=== PATIENT | female | born 1925 | race Caucasian/White ===

== ENCOUNTER 2016-05-23 17:13 | Inpatient (IN) | payer MEDICARE, BC ==
--- NOTE | ~2016-05-23 | DS ---
Discharge Summary [facility] [address] [facility] [place]. [address] NAME: CINTHYA CONROY : [birth year] STATUS : DIS IN PAT#: [id number] AGE: 89 ADM/REG DATE : 05/24/16 MR#: [id number] REPORT SERV DATE: 06/07/16 DICTATED BY: BARRERA SINGH DATE: 06/06/16 REPORT STATUS : Draft TRANSCRIBED BY: EVA DATE: 06/06/16 Data Collection from hospitalization DISCHARGE DIAGNOSES: 1. Paroxysmal atrial fibrillation with rapid ventricular response. 2. Chest pain. 3. Pacemaker placement, 05/22/2016. 4. New syncope. 5. Anemia. 6. Hypertension. 7. Sick sinus syndrome. 8. Mild mitral regurgitation. 9. Orthostatic intolerance. 10.History of remote lacunar stroke. 11.Hypothyroidism. 12.Osteoarthritis. 13.Scoliosis. 14.Degenerative disk disease. 15.Gastritis. 16.Hemorrhoids. 17.Hiatal hernia. 18.Melanoma. 19.Anxiety. 20.Hearing loss. CONSULTATIONS: None. PROCEDURES PERFORMED: None. DISCHARGE MEDICATION: Xanax 0.25 mg twice a day as needed, Cordarone 200 mg every eight hours, Synthroid 50 mcg before breakfast, Cozaar 100 mg daily, Calan 40 mg twice a day, Coumadin 4.5 mg with supper, Tylenol 650 mg every four hours as needed, Colace 200 mg twice a day as needed, nitroglycerin 0.4 mg sublingually as needed, CoQ10 100 mg after lunch, acidophilus one tablet daily, tramadol 50 mg one to two tablets every four to six hours as needed. CONDITION AT DISCHARGE: Stable. DISPOSITION: The patient was discharged to [facility] on a low-sodium, low- cholesterol, cardiac diet with activities as instructed. HOSPITAL COURSE: This is an 89-year-old female, who has a history of sick sinus syndrome with bradycardia and symptomatic paroxysmal atrial fibrillation. She also has a history of CVA, hypertension, mild nonobstructive coronary artery disease, chronic dizziness with orthostasis. She does have a preserved ejection fraction according to her recent echocardiogram. She was discharged home on the day prior to this admission after permanent pacemaker had been placed on 05/22/2016 for sick sinus syndrome. Several hours after discharge, she went home and developed precordial chest pain in her mid chest region. She Discharge Summary [facility] [address] [place]. [address] NAME: CINTHYA CONROY : [birth year] STATUS : DIS IN PAT#: [id number] AGE: 89 ADM/REG DATE : 05/24/16 MR#: [id number] REPORT SERV DATE: 06/07/16 DICTATED BY: BARRERA SINGH DATE: 06/06/16 REPORT STATUS : Draft TRANSCRIBED BY: EVA DATE: 06/06/16 also felt weak and tired. She reports that the pain lasted for hours and then several hours later, she presented to the emergency department to have things checked out. She denied shortness of breath or palpitations. In the emergency room, her EKG by my interpretation revealed atrial fibrillation with rapid ventricular response. She continued to have atrial fibrillation with rapid ventricular response all night while being observed in the short- stay unit. She also had an episode that was described as near syncope versus syncope. While she was walking back from the bathroom in the short-stay immediately after arrival to the emergency room and after standing up from the toilet, she felt weak and had to be assisted back from the bathroom by a tech from the emergency room. She was not attached to a monitor at that point. After lying in bed, she did feel better. She has a history of longstanding dizziness and orthostasis. She was found to be anemic. She denied any symptoms of abdominal pain and denied black tarry stools. Her pacemaker site was not especially uncomfortable and she had no symptoms since the evening prior to admission. She said she felt very fatigued and weak and did not think she was able to care for herself in her own home and she has no relatives nearby. She was admitted to the hospital at this time for further evaluation and treatment. Upon admission, verapamil was given. Her home flecainide dose was held that morning and amiodarone drip would be initiated instead. INR level was therapeutic at 2.2. If she remained in atrial fibrillation, we would plan a cardioversion. Chest x-ray revealed no pneumothorax. The following day, she had no further chest pain. She had no dizziness while getting out of bed. She had no palpitations or shortness of breath. INR level was 2.0. She was evaluated by Occupational and Physical Therapy. Orthostatic vital signs were checked. Her Medtronic dual-chamber pacemaker was interrogated. Her current rhythm with in/out atrial fibrillation. On 05/26/2016, she was comfortable. Losartan was decreased. Verapamil was decreased. Orthostatic vital signs continued to be checked. She had no further syncope. She said she felt good during the night. She was up sitting in a chair. Discharge planning was performed. On 05/28/2016, discharge instructions were given. Due to her improved and stable condition, she was discharged to [facility] with the above-stated instructions. Information collected by: Rajwinder Carson I submit the above information as my discharge summary. TG/MODDarrin Barrera Singh M.D. / [id number] CC: Lenard Rodriguez M.D. [facility]
--- NOTE | ~2016-05-23 | HP ---
History And Physical [place] [address] [facility] [place]. [address] NAME: CINTHYA CONROY : [birth year] STATUS : ADM Wilfrido PAT#: [id number] AGE: 89 ADM/REG DATE : 05/23/16 MR#: [id number] REPORT SERV DATE: 05/24/16 DICTATED BY: DWAYNE SIMMONS DATE: 05/24/16 REPORT STATUS : Draft TRANSCRIBED BY: MODL DATE: 05/24/16 DATE OF ADMISSION: 05/23/2016 LAP HAND TOOL: Dr. Aly. PAPER MAKER: Dr. Singh. CHIEF COMPLAINT: Symptomatic atrial fibrillation with RVR with chest pain in a patient who was postop day #1 from permanent pacemaker. HISTORY OF PRESENT ILLNESS: This is a pleasant 89-year-old frail white female with a history of sick sinus syndrome with bradycardia and symptomatic paroxysmal atrial fibrillation. She does also have a history of CVA, hypertension, mild nonobstructive CAD, chronic dizziness with orthostasis. She does have a preserved ejection fraction per recent echo. She was discharged to home yesterday morning after a permanent pacemaker was placed 05/22/2016 in the afternoon by Dr. Singh for sick sinus syndrome. Several hours after discharge she went home and developed precordial chest pain in her mid chest region. She also felt weak and tired. She reports the pain lasted for hours and several hours later, she presented to the emergency department to have things checked out. She denied any shortness of breath. No palpitation. In the emergency room, EKG was found by my interpretation to reveal atrial fibrillation with RVR. She continues to have had atrial fibrillation with RVR all night while being observed in the short-stay unit. She did also have an episode that was described as a near-syncope versus syncope. While she was walking back from the bathroom in short-stay immediately after arrival from ER. After standing up from the toilet, she felt weak and had to be assisted back from the bathroom by the tech from the ER. She was not attached to the monitor yet at that point. After she was lying in bed, she did feel better. She does have a history of long-standing dizziness and orthostasis. While she was found to be anemic, she denies any symptoms of abdominal pain, and denies black tarry stools. Pacemaker site is not especially uncomfortable and she has no symptoms since yesterday evening. Currently, she is feeling well except for she says that she is very fatigued and weak and does not feel that she is able to care for herself in her own home as she has no relatives nearby and she lives alone. PAST MEDICAL HISTORY: 1. Paroxysmal atrial fibrillation, on chronic anticoagulation with Jantoven. 2. Sick sinus syndrome with significant pauses and syncope. 3. Hypertension. 4. Nonobstructive coronary artery disease per cath, arteriogram 06/22/2010 with 20%-30% circumflex eccentric before bifurcation of terminal atrioventricular branch, posterolateral branch. This was performed after a false-positive stress test. 5. Mild mitral regurgitation per echocardiogram 04/23/2016. 6. Orthostatic intolerance. 7. Remote lacunar stroke, right basal ganglia with diffuse white matter demyelination, periventricular and subcortical with extension to centrum semiovale 04/21/2016. 8. Hypothyroidism. 9. Osteoarthritis. History And Physical [address] [address] NAME: CINTHYA CONROY : [birth year] STATUS : ADM Wilfrido PAT#: [id number] AGE: 89 ADM/REG DATE : 05/23/16 MR#: [id number] REPORT SERV DATE: 05/24/16 DICTATED BY: DWAYNE SIMMONS DATE: 05/24/16 REPORT STATUS : Draft TRANSCRIBED BY: EVA DATE: 05/24/16 10.Mild intimal coronary irregularities without significant stenosis by previous catheterization to 06/22/2010. 11.Walking pneumonia. 12.Arthritis. 13.Scoliosis. 14.Low back pain. 15.Degenerative disk disease. 16.Gastritis. 17.Hemorrhoids. 18.C diff. 19.Hiatal hernia. 20.Melanoma. 21.Anxiety. 22.Difficulty swallowing with narrowed esophagus. 23.Hearing loss. PAST SURGICAL HISTORY: 1. Cataract surgery. 2. Hysterectomy 1973. 3. Melanoma removed from arm in 1966. 4. Hemorrhoidectomy 2002. 5. Appendectomy 1945. SOCIAL HISTORY: . Lives alone. She does have adult children, but they do not live nearby. She denies any tobacco or alcohol usage. FAMILY HISTORY: Son with history of heart disease. REVIEW OF SYSTEMS: As above per HPI, all other systems reviewed and negative. ALLERGIES: 1. CODEINE, REACTION NAUSEA AND VOMITING. 2. CLINDAMYCIN, C DIFF DEVELOPED AFTER ONLY ONE DOSE. HOME MEDICATIONS: List reviewed and is as follows, 1. Xanax 0.25 mg p.o. twice per day as needed for anxiety. 2. Coenzyme Q10 100 mg p.o. after lunch. 3. Flecainide 100 mg p.o. twice per day. 4. Acidophilus one tablet p.o. daily. 5. Synthroid 50 mcg before breakfast. 6. Losartan 100 mg p.o. daily. 7. Verapamil 40 mg p.o. twice per day. 8. Coumadin 4.5 mg p.o. with supper. PHYSICAL EXAMINATION: VITAL SIGNS: Oxygen saturation 95% on room air; temperature 98; pulse 126, most recent 106; History And Physical [address] [address] NAME: CINTHYA CONROY : [birth year] STATUS : ADM Wilfrido PAT#: [id number] AGE: 89 ADM/REG DATE : 05/23/16 MR#: [id number] REPORT SERV DATE: 05/24/16 DICTATED BY: DWAYNE SIMMONS DATE: 05/24/16 REPORT STATUS : Draft TRANSCRIBED BY: EVA DATE: 05/24/16 respiratory rate 18; blood pressure 140/100. GENERAL: Well developed, well nourished. In no apparent distress. HEENT: Head normocephalic. No xanthelasma. Sclera clear, anicteric. Moist mucous membranes without pallor. No lymphadenopathy. No deficits noted. NECK: Trachea midline. Supple. No thyromegaly, JVD, or bruits. RESPIRATORY: Unlabored respirations. Breath sounds clear bilaterally to posterior auscultation. No wheezes, rhonchi or crackles. CARDIOVASCULAR: Irregularly irregular and tachycardic. No murmur, rub, or gallop appreciated. Left side permanent pacemaker with Steri-Strips that are clean, dry, and intact. There is mild bruising noted around pacemaker site. There are no exudates. ABDOMEN: Soft, nontender, and nondistended. Active bowel sounds auscultated x4 quadrants. No organomegaly and no masses. No aortic bruit. EXTREMITIES: DP/PT and radial pulses 2+ bilaterally. No clubbing, cyanosis, or edema. SKIN: Warm, dry, intact. No rash. Normal turgor. MUSCULOSKELETAL: Moves all extremities in bed without difficulty. NEURO/PSYCH: Alert and oriented x3 with no acute distress. Affect appropriate to current situation. LABORATORY DATA: BMP: Sodium 140, potassium low at 3.2, creatinine 0.72, glucose 99, magnesium 2.4. CBC: White blood cell count 7.2, hemoglobin 9.4 yesterday at 1655 (down from 13.4 on 05/22), hematocrit 27.8 at 1655 on 05/23 (down from 39.4 on 05/22), RBC 2.87 which is also down from 05/22. There was normocytic and normochromic anemia pattern. Platelets 176. INR therapeutic at 2.2. Troponin 0.06, 0.05, 0.04. EKGs multiple, personally interpreted, most recent EKG was performed this morning at 0741, atrial fibrillation with RVR with frequent V-paced complexes, heart rate 116, possible septal infarct. No acute ischemia. EKG initially in the emergency room yesterday at 1605 reveals atrial flutter with variable AV block with V-pacing complexes, nonspecific ST changes in the infero and lateral leads. EKG performed this morning at 0032 hours revealed atrial fibrillation with anterolateral possible ischemia. There is intermittent V-pacing. Another EKG performed this morning at 0539 revealed atrial flutter with a 2:1 conduction, septal infarct age undetermined with anterolateral ST changes. Telemetry, atrial fibrillation with RVR with V-pacing intermittently one-teens to 120s. ASSESSMENT/PLAN: 1. Paroxysmal atrial fibrillation/atrial flutter with rapid ventricular response, currently atrial fibrillation with rapid ventricular response. The patient did not receive her cardiac medications last night in the emergency room. Nurse will give verapamil now. Her home flecainide dose will be held this morning and amiodarone drip will be initiated instead. INR is therapeutic at 2.2. If she remains in atrial fibrillation, then we will plan a cardioversion today with Dr. Singh. I reviewed the risks and benefits of cardioversion and patient would wish to proceed if need be. Dr. Singh to see patient later today. 2. Precordial chest pain. This was atypical yesterday several hours after being discharged home post pacemaker. Flat troponins reveal no acute coronary syndrome. History And Physical [address] [place]. [address] NAME: CINTHYA CONROY : [birth year] STATUS : ADM Wilfrido PAT#: [id number] AGE: 89 ADM/REG DATE : 05/23/16 MR#: [id number] REPORT SERV DATE: 05/24/16 DICTATED BY: DWAYNE SIMMONS DATE: 05/24/16 REPORT STATUS : Draft TRANSCRIBED BY: EVA DATE: 05/24/16 Differential diagnosis includes recent pacemaker insertion or symptomatic atrial fibrillation along with acute anemia. Patient denies blood in stool. There were no large bruises over her body. She does have mild bruising at her pacemaker site. She is symptomatic with fatigue. I will follow her anemia with CBC repeat this morning, followed by a repeat hemoglobin and hematocrit in 8 hours and Hemoccult. We will follow and further recommendations are forthcoming. 3. Sick sinus syndrome, status post permanent pacemaker. She is now postop day #2 with intermittent V-pacing frequently. Chest x-ray revealed no pneumothorax. 4. Small pleural effusions. She did have a preserved LVEF of 60% per recent echocardiogram 04/23/2016 with mild mitral regurgitation, mild to moderate tricuspid regurgitation, and aortic valve sclerosis. She denies any dyspnea at this time. We will follow. 5. Mild nonobstructive coronary disease with luminal irregularities per catheterization 2010. We will consider adding a statin and I will defer to her control operator. 6. Near syncope. The patient has a history of orthostatic abnormalities at baseline and she is anemic at this present time. It is likely secondary to orthostasis and/or anemia. I will have the RN check orthostatic vitals at this time and she will provide fluid rehydration if she is orthostatic. Currently, she is feeling well. 7. Debility. The patient reports she is too weak to live at home alone as she has no relatives nearby. She reports she wants to go to rehab in [place]. I will consult PT and OT for evaluation to determine whether she could go home with home health first and if she would require placement and I will have Dr. Singh discuss with the patient further. I recommend Dr. Singh consider taking the patient under his service to continue the evaluation for anemia and debility along with atrial fibrillation with RVR postpacemaker. Further recommendations forthcoming his evaluation. KL/MODL Dwayne Simmons NP / [id number] CC: Yanique Montelongo, MSN, ORTHOPAEDIC SURGEON- Lenard Kunz M.D. David Wendt, M.D.
[2016-05-23 17:05] LABS: BASOPHILS 0.1 %; BASOPHILS ABSOLUTE 0.01 10/3/uL (0.0-0.16); EOSINOPHILS 0.3 %; EOSINOPHILS ABSOLUTE 0.02 10/3/uL (0.0-0.53); IMMATURE GRANULOCYTES 0.1 %; IMMATURE GRANULOCYTES ABSOLUTE 0.01 10/3/uL (0.0-0.11); LYMPHOCYTES 10.9 %; LYMPHOCYTES ABSOLUTE 0.78 10/3/uL (0.67-4.30); MEAN CORPUS HGB CONC 33.8 g/dL (32.0-36.0); MEAN CORPUSCULAR HEMOGLOB 32.8 pg (26.0-34.0); MEAN PLATELET VOLUME 9.4 fL (9.2-13.0); MONOCYTES 10.2 %; MONOCYTES ABSOLUTE 0.73 10/3/uL (0.21-1.20); NEUTROPHILS 78.4 %; NEUTROPHILS ABSOLUTE 5.63 10/3/uL (2.02-8.40); RBC DISTRIBUTION WIDTH 14.6 % (12.0-16.0); WHITE BLOOD CELLS 7.2 10/3/uL (4.5-10.5)
[2016-05-23 17:06] LABS: HEMATOCRIT 27.8 % (36.0-48.0); HEMOGLOBIN 9.4 g/dL (12.0-16.0); MANUAL DIFF NO %; MEAN CORPUSCULAR VOLUME 96.9 fL (80-100); PLATELET COUNT 176 10/3/uL (150-400); RED CELL COUNT 2.87 10/6/uL (4.0-5.6)
[~2016-05-23 17:13] MED LIST: ACIDOPHILU2 PO; ASAB PO; C1 PO; CALAN120 MG PO; CALAN40 MG PO; CALAN80 MG PO; CALTRAT600 PO; CENTRUM TAB1 TAB PO; CO Q-10 OTC PO; CO Q-10100 MG PO; COREG3 PO; COZ25 PO; COZAAR100 MG PO; FISH-EPA1000 MG PO; FLAG500TAB PO; FLECAINIDE50 MG PO; FLORASTOR250 MG PO; JANTOVEN1 MG PO; JANTOVEN4 MG PO; JANTOVEN5 MG PO; KDUR10 PO; LEVOTHYROXIN50 MCG PO; MAX25 PO; METROCREAM0.75 % TOP; NORV25 PO; NORV5 PO; PRILO PO; PRIN2.5 PO; SYN.05 PO; V5 PO; V80 PO; VITAMIN C100 MG PO; X5 PO
[2016-05-23 17:16] LABS: INTERNATIONAL NORMAL RATI 2.2 UNITS (-); PARTIAL THROMBO TIME 34.6 SEC (22.5-37.2)
[2016-05-23 18:33] LABS: CHEST PAIN PROFILE TAT 0 Hrs 37 Mins; TROPONIN I 0.06 NG/ML (<0.05)
[2016-05-23 18:43] LABS: BUN (BLOOD UREA NITROGEN) 16 MG/DL (6-23); CALCIUM, SERUM 8.9 MG/DL (8.5-10.4); CHLORIDE, SERUM 104 MMOL/L (96-112); CREATININE 0.72 MG/DL (0.55-1.02); GFR AFRICAN AMERICAN 86 ML/MIN (>=60); GFR NON AFRICAN AMERICAN 74 ML/MIN (>=60); GLUCOSE, SERUM 99 MG/DL (60-99); POTASSIUM, SERUM 3.2 MMOL/L (3.5-5.3); SODIUM, SERUM 140 MMOL/L (135-148)
[2016-05-23 18:45] LABS: CO2 (CARBON DIOXIDE) 24 MMOL/L (24-34)
[2016-05-23] MEDS ORDERED: FLECAINIDE100 MG PO (20:03)
[2016-05-23] MEDS ORDERED: SYN.05 PO (20:03)
[2016-05-23] MEDS ORDERED: COZAAR100 MG PO (20:04)
[2016-05-23] MEDS ORDERED: CALAN40 MG PO (20:04)
[2016-05-23] MEDS ORDERED: ACIDOPHILU2 PO (20:05)
[2016-05-23] MEDS ORDERED: CO Q-10100 MG PO (20:05)
[2016-05-23] MEDS ORDERED: COUMADIN4 MG PO (20:06)
[2016-05-23] MEDS ORDERED: X25 PO (20:08)
[2016-05-24 11:53] LABS: BASOPHILS 0.1 %; BASOPHILS ABSOLUTE 0.01 10/3/uL (0.0-0.16); EOSINOPHILS 0.4 %; EOSINOPHILS ABSOLUTE 0.03 10/3/uL (0.0-0.53); HEMATOCRIT 37.7 % (36.0-48.0); HEMOGLOBIN 12.9 g/dL (12.0-16.0); IMMATURE GRANULOCYTES 0.3 %; IMMATURE GRANULOCYTES ABSOLUTE 0.02 10/3/uL (0.0-0.11); LYMPHOCYTES 11.3 %; MANUAL DIFF NO %; MEAN CORPUS HGB CONC 34.2 g/dL (32.0-36.0); MEAN CORPUSCULAR VOLUME 93.5 fL (80-100); MEAN PLATELET VOLUME 9.6 fL (9.2-13.0); MONOCYTES 10.6 %; MONOCYTES ABSOLUTE 0.84 10/3/uL (0.21-1.20); NEUTROPHILS 77.3 %; NEUTROPHILS ABSOLUTE 6.13 10/3/uL (2.02-8.40); PLATELET COUNT 237 10/3/uL (150-400); RED CELL COUNT 4.03 10/6/uL (4.0-5.6); WHITE BLOOD CELLS 7.9 10/3/uL (4.5-10.5)
[2016-05-24 12:14] LABS: BUN (BLOOD UREA NITROGEN) 14 MG/DL (6-23); CALCIUM, SERUM 8.4 MG/DL (8.5-10.4); CHLORIDE, SERUM 105 MMOL/L (96-112); CO2 (CARBON DIOXIDE) 28 MMOL/L (24-34); CREATININE 0.73 MG/DL (0.55-1.02); FREE T4 1.36 NG/DL (0.76-1.46); GFR AFRICAN AMERICAN 85 ML/MIN (>=60); GFR NON AFRICAN AMERICAN 73 ML/MIN (>=60); GLUCOSE, SERUM 112 MG/DL (60-99); POTASSIUM, SERUM 3.7 MMOL/L (3.5-5.3); SODIUM, SERUM 141 MMOL/L (135-148)
[2016-05-24 12:49] LABS: PROTIME (NOT ORD) 22.6 SEC (12.0-14.5)
[2016-05-24 22:01] LABS: HEMOGLOBIN 12.5 g/dL (12.0-16.0)
[2016-05-25 04:57] LABS: PROTIME (NOT ORD) 22.7 SEC (12.0-14.5)
[2016-05-25 05:06] LABS: BUN (BLOOD UREA NITROGEN) 11 MG/DL (6-23); CALCIUM, SERUM 8.4 MG/DL (8.5-10.4); CHLORIDE, SERUM 107 MMOL/L (96-112); CO2 (CARBON DIOXIDE) 23 MMOL/L (24-34); CREATININE 0.71 MG/DL (0.55-1.02); GFR AFRICAN AMERICAN 88 ML/MIN (>=60); GFR NON AFRICAN AMERICAN 76 ML/MIN (>=60); GLUCOSE, SERUM 99 MG/DL (60-99); POTASSIUM, SERUM 3.6 MMOL/L (3.5-5.3); SODIUM, SERUM 140 MMOL/L (135-148)
[2016-05-26 06:31] LABS: BASOPHILS 0.4 %; BASOPHILS ABSOLUTE 0.02 10/3/uL (0.0-0.16); EOSINOPHILS 2.4 %; EOSINOPHILS ABSOLUTE 0.12 10/3/uL (0.0-0.53); HEMATOCRIT 36.7 % (36.0-48.0); HEMOGLOBIN 12.7 g/dL (12.0-16.0); IMMATURE GRANULOCYTES 0.2 %; IMMATURE GRANULOCYTES ABSOLUTE 0.01 10/3/uL (0.0-0.11); LYMPHOCYTES 20.2 %; LYMPHOCYTES ABSOLUTE 0.99 10/3/uL (0.67-4.30); MEAN CORPUS HGB CONC 34.6 g/dL (32.0-36.0); MEAN CORPUSCULAR HEMOGLOB 32.4 pg (26.0-34.0); MEAN CORPUSCULAR VOLUME 93.6 fL (80-100); MEAN PLATELET VOLUME 9.7 fL (9.2-13.0); MONOCYTES 9.6 %; MONOCYTES ABSOLUTE 0.47 10/3/uL (0.21-1.20); NEUTROPHILS 67.2 %; NEUTROPHILS ABSOLUTE 3.29 10/3/uL (2.02-8.40); PLATELET COUNT 239 10/3/uL (150-400); RBC DISTRIBUTION WIDTH 14.1 % (12.0-16.0); RED CELL COUNT 3.92 10/6/uL (4.0-5.6); WHITE BLOOD CELLS 4.9 10/3/uL (4.5-10.5)
[2016-05-26 06:32] LABS: MANUAL DIFF NO %
[2016-05-26 06:42] LABS: BUN (BLOOD UREA NITROGEN) 9 MG/DL (6-23); CALCIUM, SERUM 8.7 MG/DL (8.5-10.4); CHLORIDE, SERUM 109 MMOL/L (96-112); CO2 (CARBON DIOXIDE) 25 MMOL/L (24-34); CREATININE 0.78 MG/DL (0.55-1.02); GFR AFRICAN AMERICAN 78 ML/MIN (>=60); GFR NON AFRICAN AMERICAN 67 ML/MIN (>=60); GLUCOSE, SERUM 98 MG/DL (60-99); POTASSIUM, SERUM 3.6 MMOL/L (3.5-5.3); SODIUM, SERUM 144 MMOL/L (135-148)
[2016-05-26 06:43] LABS: INTERNATIONAL NORMAL RATI 2.1 UNITS (-); PROTIME (NOT ORD) 23.2 SEC (12.0-14.5)
[2016-05-27 07:07] LABS: PROTIME (NOT ORD) 22.5 SEC (12.0-14.5)
[2016-05-28 07:48] LABS: PROTIME (NOT ORD) 22.7 SEC (12.0-14.5)
[2016-06-14] MEDS ORDERED: NITROSTAT0.4 MG SL (06:34)
[2016-06-14] MEDS ORDERED: ULTRAM50 PO ×2 (06:35)
[2016-06-14] MEDS ORDERED: LEVOTHYROXIN50 MCG PO (06:36)
[2016-06-14] MEDS ORDERED: CALAN40 MG PO (06:37)
[2016-06-14] MEDS ORDERED: CORDARONE PO (06:37)
[2016-06-14] MEDS ORDERED: COZAAR100 MG PO (06:37)
[2016-06-14] MEDS ORDERED: ACIDOPHILU2 PO (06:38)
[2016-06-14] MEDS ORDERED: CO Q-10100 MG PO (06:39)
[2016-06-14] MEDS ORDERED: T PO (06:39)
[2016-06-14] MEDS ORDERED: X25 PO (06:40)
[2016-06-14] MEDS ORDERED: DSS PO (06:40)
== END 2016-05-28 18:04 | DRG 243 ==
LOC: ER 17:13 → SSU2 19:20 → 6NO 05-24 19:29
PROVIDERS: Clinical Nurse Specialist; Emergency Medicine; Internal Medicine Clinical Cardiac Electrophysiology; Nurse Practitioner; Student in an Organized Health Care Education/Training Program
PROC: 4B02XSZ Measurement of Cardiac Pacemaker, External Approach (ICD-10-PCS; principal; 2016-05-24)
PROC: 0JH606Z Insertion of Pacemaker, Dual Chamber into Chest Subcutaneous Tissue and Fascia, Open Approach (ICD-10-PCS; 2016-05-24)
PROC: 02H63JZ Insertion of Pacemaker Lead into Right Atrium, Percutaneous Approach (ICD-10-PCS; 2016-05-24)
PROC: 02HK3JZ Insertion of Pacemaker Lead into Right Ventricle, Percutaneous Approach (ICD-10-PCS; 2016-05-24)
DX: I49.5 Sick sinus syndrome (principal); J90 Pleural effusion, not elsewhere classified; I48.92 Unspecified atrial flutter; K22.2 Esophageal obstruction; R13.10 Dysphagia, unspecified; I08.3 Combined rheumatic disorders of mitral, aortic and tricuspid valves; D64.9 Anemia, unspecified; I48.0 Paroxysmal atrial fibrillation; I25.10 Atherosclerotic heart disease of native coronary artery without angina pectoris; I10 Essential (primary) hypertension; E03.9 Hypothyroidism, unspecified; M19.90 Unspecified osteoarthritis, unspecified site; M54.5 Low back pain; H91.90 Unspecified hearing loss, unspecified ear; K44.9 Diaphragmatic hernia without obstruction or gangrene; F41.9 Anxiety disorder, unspecified; I95.1 Orthostatic hypotension; Z86.73 Personal history of transient ischemic attack (TIA), and cerebral infarction without residual deficits; Z90.710 Acquired absence of both cervix and uterus; Z86.19 Personal history of other infectious and parasitic diseases; Z85.820 Personal history of malignant melanoma of skin; Z88.5 Allergy status to narcotic agent; Z88.1 Allergy status to other antibiotic agents; Z95.0 Presence of cardiac pacemaker; Z88.0 Allergy status to penicillin; Z90.49 Acquired absence of other specified parts of digestive tract; Z98.890 Other specified postprocedural states; Z79.82 Long term (current) use of aspirin
CPT/HCPCS: 33208; 71010; 71020; 80048; 82272; 82962; 83735; 84439; 84443; 84484; 85014; 85018; 85025; 85610; 85730; 93005; 97162-GP; 97165-GO; 99285; A9270-GY; C1785; C1892; C1898; G8978-CK-GP; G8979-CI-GP; G8987-CK-GO; G8988-CJ-GO; J0282; J0690; J3010